=== PATIENT | female | born 1955 | race Caucasian/White ===

== ENCOUNTER 2018-12-20 10:33 | Inpatient (IN) | payer MEDICARE, OTHER ==
[~2018-12-20] VITALS: Ht 170.2 cm; Wt 121.6 kg
[2018-12-20 11:35] LABS: BASOPHILS % 0.3 % (0.0-2.0); EOSINOPHILS % 0.4 % (0.0-5.0); HEMATOCRIT. 52.6 % (36.0-48.0); HEMOGLOBIN. 17.2 g/dL (12.0-16.0); LYMPHOCYTES % 11.4 % (20.0-50.0); MEAN CORPUSCULAR HEMOGLOBIN 29.4 pg (28.0-32.0); MEAN CORPUSCULAR VOLUME 89.8 fL (81.0-99.0); MEAN PLATELET VOLUME 7.6 fl (7.4-10.4); MONOCYTES % 5.4 % (2.0-8.0); NEUTROPHILS % 82.5 % (40.0-76.0); PLATELET 301 x1000/uL (130-400); RED BLOOD CELL COUNT 5.86 mill/uL (4.2-5.4); RED CELL DISTRIBUTION WIDTH 13.6 % (11.6-14.6)
[2018-12-20 11:40] LABS: CHLORIDE 99 mEq/L (98-107)
[2018-12-20] MEDS ORDERED: INSULIN REGULAR (HUMULIN R) 300UNITS/3ML IV ONE (15:00)
[2018-12-20] MEDS: SODIUM CHLORIDE 0.9% 1,000 ML IV SCH ×2 (16:59→23:33)
[2018-12-20] MEDS ORDERED: DEXTROSE 50% WATER 50ML SYRINGE IV PRN (17:00)
[2018-12-20] MEDS ORDERED: LORAZEPAM 0.5MG TABLET PO PRN (17:00)
[2018-12-20] MEDS ORDERED: GUAIFENESIN 200MG/10ML SUGAR FREE UDC PO PRN (17:00)
[2018-12-20] MEDS ORDERED: LEVOFLOXACIN 500MG PREMIX 100 ML IV SCH (17:00)
[2018-12-20] MEDS ORDERED: ONDANSETRON HCL 4MG/2ML INJ IV PRN (17:00)
[2018-12-20] MEDS ORDERED: CLONIDINE 0.1MG TABLET PO PRN (17:00)
[2018-12-20] MEDS ORDERED: NITROGLYCERIN 0.4MG TABLET SL SL PRN (17:00)
[2018-12-20] MEDS ORDERED: ACETAMINOPHEN 325MG TABLET PO PRN (17:00)
[2018-12-20] MEDS ORDERED: MAGNESIUM/ALUMINUM HYDROXIDE/SIMETHICONE 30ML UDC PO PRN (17:00)
[2018-12-20] MEDS ORDERED: DOCUSATE SODIUM 100MG CAPSULE PO PRN (17:00)
[2018-12-20] MEDS ORDERED: IPRATROPIUM/ALBUTEROL 0.5-3(2.5)MG/3ML NEB INH PRN (17:00)
[2018-12-20] MEDS ORDERED: TRAMADOL 50MG TABLET PO PRN (17:11)
[2018-12-20 18:10] LABS: T4 FREE 1.44 ng/dL (0.76-1.46)
[2018-12-20] MEDS: BLOOD SUGAR DIAGNOSTIC STRIP TEST SCH ×2 (19:30→23:33)
[2018-12-20] MEDS ORDERED: ZOLPIDEM TARTRATE 5MG TABLET PO PRN (20:00)
[2018-12-20] MEDS ORDERED: NA PHOS,M-B/NA PHOS,DI-BA ENEMA 118ML PR PRN (21:00)
[2018-12-20] MEDS: INSULIN LISPRO 100 UNITS/ML SUBCUT SCH ×2 (21:00→23:54)
[2018-12-20] MEDS ORDERED: INSULIN GLARGINE UD 100 UNITS/ML SYR SUBCUT SCH (22:00)
[2018-12-20] MEDS ORDERED: IOHEXOL-350 100 ML BOTTLE ONE (22:03)
[2018-12-20 22:18] VITALS: BP 116/65
[2018-12-20] MEDS ORDERED: ASPI-1393 PO (22:52)
[2018-12-20] MEDS ORDERED: FLUO40CA8 PO (22:54)
[2018-12-20] MEDS ORDERED: GLIM4TAB2 PO (22:55)
[2018-12-20] MEDS ORDERED: PRAV20TA57 PO (22:56)
[2018-12-20] MEDS ORDERED: METF-415 PO (22:57)
[2018-12-20] MEDS ORDERED: CEFTRIAXONE 1 G PREMIX 50 ML IV SCH (23:00)
[2018-12-20] MEDS: LEVOFLOXACIN 500MG PREMIX 100 ML IV SCH (23:34)
[2018-12-20] MEDS: ASCORBIC ACID 500 MG TABLET PO SCH (23:34)
[2018-12-20] MEDS: FAMOTIDINE 20MG TABLET PO SCH (23:34)
[2018-12-20] MEDS: INSULIN GLARGINE UD 100 UNITS/ML SYR SUBCUT SCH (23:35)
[2018-12-21 04:00] VITALS: BP 118/65
[2018-12-21] MEDS: BLOOD SUGAR DIAGNOSTIC STRIP TEST SCH ×4 (06:37→21:00)
[2018-12-21] MEDS ORDERED: DILTIAZEM HCL 30MG TABLET PO SCH (07:30)
[2018-12-21 08:00] VITALS: BP 118/73
[2018-12-21] MEDS: ZINC SULFATE 220 MG ( 50 ) CAPSULE PO SCH (08:16)
[2018-12-21] MEDS: ASCORBIC ACID 500 MG TABLET PO SCH ×2 (08:16→21:18)
[2018-12-21] MEDS: FAMOTIDINE 20MG TABLET PO SCH ×2 (08:16→21:18)
[2018-12-21] MEDS: INSULIN LISPRO 100 UNITS/ML SUBCUT SCH ×4 (08:21→21:19)
[2018-12-21] MEDS ORDERED: ENOXAPARIN 30MG/0.3ML SYR SUBCUT SCH (09:00)
[2018-12-21] MEDS ORDERED: ASPIRIN 325MG EC TABLET PO SCH (09:00)
[2018-12-21 12:00] VITALS: BP 116/71
[2018-12-21] MEDS ORDERED: DILTIAZEM HCL 5MG/ML 5ML VIAL IV PRN (12:00)
[2018-12-21] MEDS ORDERED: DILTIAZEM HCL 5MG/ML 5ML VIAL IV NR ×2 (12:00→14:15)
[2018-12-21] MEDS: SODIUM CHLORIDE 0.9% 1,000 ML IV SCH (13:12)
[2018-12-21] MEDS: DILTIAZEM HCL 90MG TABLET PO SCH ×2 (13:12→18:00)
[2018-12-21 13:32] LABS: T4 FREE 1.32 ng/dL (0.76-1.46)
[2018-12-21 14:05] VITALS: BP 91/46
[2018-12-21] MEDS: DIGOXIN 500MCG/2ML AMP IV NR ×2 (14:15→14:29)
[2018-12-21 16:00] VITALS: BP 94/51
[2018-12-21] MEDS ORDERED: DIGOXIN 500MCG/2ML AMP IV NR (18:15)
[2018-12-21] MEDS: CEFTRIAXONE 1 G PREMIX 50 ML IV SCH (18:19)
[2018-12-21 20:41] VITALS: BP 99/69
[2018-12-21] MEDS: ENOXAPARIN 100MG/ML SYR SUBCUT SCH (21:18)
[2018-12-21] MEDS: INSULIN GLARGINE UD 100 UNITS/ML SYR SUBCUT SCH (21:20)
[2018-12-21 22:36] LABS: CLARITY URINE CLOUDY (CLEAR); COLOR URINE YELLOW (YELLOW); KETONES URINE NEGATIVE (NEGATIVE); LEUKOCYTE ESTERASE URINE 2+ (NEGATIVE); NITRITE URINE NEGATIVE (NEGATIVE); OCCULT BLOOD URINE NEGATIVE (NEGATIVE); PROTEIN URINE NEGATIVE (NEGATIVE); SPECIFIC GRAVITY URINE 1.026 (1.005-1.030); UROBILINOGEN URINE 0.2 E.U./dL (0.2-1.0)
[2018-12-21 22:49] LABS: *BENZODIAZEPINES SCREEN URINE NEGATIVE (NEGATIVE); *COCAINE SCREEN URINE NEGATIVE (NEGATIVE); METHADONE URINE SCREEN NEGATIVE (NEGATIVE); OPIATES URINE SCREEN NEGATIVE (NEGATIVE)
[2018-12-21 22:51] LABS: *AMPHETAMINES SCREEN URINE NEGATIVE (NEGATIVE); PHENCYCLIDINE URINE SCREEN NEGATIVE (NEGATIVE)
[2018-12-21 22:52] LABS: *BARBITURATES SCREEN URINE NEGATIVE (NEGATIVE); CANNABINOID URINE SCREEN NEGATIVE (NEGATIVE)
[2018-12-22] MEDS: SODIUM CHLORIDE 0.9% 1,000 ML IV SCH ×3 (00:10→18:59)
[2018-12-22] MEDS: LEVOFLOXACIN 500MG PREMIX 100 ML IV SCH (00:11)
[2018-12-22 00:34] VITALS: BP 95/54
[2018-12-22 04:00] VITALS: BP 102/57
[2018-12-22] MEDS: DILTIAZEM HCL 90MG TABLET PO SCH ×4 (05:42→18:00)
[2018-12-22] MEDS: BLOOD SUGAR DIAGNOSTIC STRIP TEST SCH ×4 (06:12→21:34)
[2018-12-22 06:44] LABS: D-DIMER 2.12 mg/L FEU (<0.50); INR 1.2
[2018-12-22 06:55] LABS: BASOPHILS % 0.4 % (0.0-2.0); EOSINOPHILS % 2.2 % (0.0-5.0); HEMATOCRIT. 38.5 % (36.0-48.0); HEMOGLOBIN. 12.9 g/dL (12.0-16.0); LYMPHOCYTES % 17.6 % (20.0-50.0); MEAN CORPUSCULAR HEMOGLOBIN 29.7 pg (28.0-32.0); MEAN CORPUSCULAR VOLUME 88.4 fL (81.0-99.0); MEAN PLATELET VOLUME 7.3 fl (7.4-10.4); MONOCYTES % 7.1 % (2.0-8.0); NEUTROPHILS % 72.7 % (40.0-76.0); PLATELET 192 x1000/uL (130-400); RED BLOOD CELL COUNT 4.35 mill/uL (4.2-5.4); RED CELL DISTRIBUTION WIDTH 13.5 % (11.6-14.6)
[2018-12-22 07:17] LABS: CHLORIDE 108 mEq/L (98-107)
[2018-12-22 07:24] LABS: HDL CHOLESTEROL 47 mg/dL (40-59); LDL CHOLESTEROL 95 mg/dL (5-100)
[2018-12-22] MEDS: FAMOTIDINE 20MG TABLET PO SCH ×2 (10:13→21:34)
[2018-12-22] MEDS: ENOXAPARIN 100MG/ML SYR SUBCUT SCH ×2 (10:13→21:34)
[2018-12-22] MEDS: ZINC SULFATE 220 MG ( 50 ) CAPSULE PO SCH (10:13)
[2018-12-22] MEDS: ASCORBIC ACID 500 MG TABLET PO SCH ×2 (10:13→21:34)
[2018-12-22] MEDS: INSULIN LISPRO 100 UNITS/ML SUBCUT SCH ×4 (10:17→21:40)
[2018-12-22 11:48] VITALS: BP 135/68
[2018-12-22] MEDS ORDERED: MAGNESIUM 2 G PREMIX 50 ML IV NR (14:00)
[2018-12-22 15:51] VITALS: BP 119/60
[2018-12-22] MEDS: CEFTRIAXONE 1 G PREMIX 50 ML IV SCH (18:08)
[2018-12-22] MEDS: AMIODARONE HCL 200 MG TABLET PO SCH (18:08)
[2018-12-22 20:00] VITALS: BP 120/73
[2018-12-22] MEDS: INSULIN GLARGINE UD 100 UNITS/ML SYR SUBCUT SCH (21:38)
[2018-12-23 00:21] VITALS: BP 120/59
[2018-12-23] MEDS: DILTIAZEM HCL 90MG TABLET PO SCH ×3 (00:41→12:10)
[2018-12-23] MEDS: LEVOFLOXACIN 500MG PREMIX 100 ML IV SCH (00:42)
[2018-12-23 04:00] VITALS: BP 106/67
[2018-12-23] MEDS: AMIODARONE HCL 200 MG TABLET PO SCH ×2 (06:07→16:47)
[2018-12-23] MEDS: BLOOD SUGAR DIAGNOSTIC STRIP TEST SCH ×4 (06:17→21:00)
[2018-12-23] MEDS: SODIUM CHLORIDE 0.9% 1,000 ML IV SCH ×2 (06:17→14:24)
[2018-12-23 07:29] LABS: BASOPHILS % 0.4 % (0.0-2.0); EOSINOPHILS % 3.4 % (0.0-5.0); HEMATOCRIT. 37.2 % (36.0-48.0); HEMOGLOBIN. 12.4 g/dL (12.0-16.0); LYMPHOCYTES % 20.6 % (20.0-50.0); MEAN CORPUSCULAR HEMOGLOBIN 29.6 pg (28.0-32.0); MEAN CORPUSCULAR VOLUME 88.3 fL (81.0-99.0); MEAN PLATELET VOLUME 7.3 fl (7.4-10.4); MONOCYTES % 8.5 % (2.0-8.0); NEUTROPHILS % 67.1 % (40.0-76.0); PLATELET 179 x1000/uL (130-400); RED BLOOD CELL COUNT 4.21 mill/uL (4.2-5.4); RED CELL DISTRIBUTION WIDTH 13.6 % (11.6-14.6)
[2018-12-23 08:00] VITALS: BP 121/64
[2018-12-23] MEDS: INSULIN LISPRO 100 UNITS/ML SUBCUT SCH ×4 (08:00→17:00)
[2018-12-23] MEDS: ASCORBIC ACID 500 MG TABLET PO SCH ×2 (09:44→21:14)
[2018-12-23] MEDS: FAMOTIDINE 20MG TABLET PO SCH ×2 (09:44→21:14)
[2018-12-23] MEDS: ZINC SULFATE 220 MG ( 50 ) CAPSULE PO SCH (09:45)
[2018-12-23] MEDS: ENOXAPARIN 100MG/ML SYR SUBCUT SCH ×2 (09:52→21:16)
[2018-12-23 10:23] LABS: CHLORIDE 108 mEq/L (98-107)
[2018-12-23 12:00] VITALS: BP 134/68
[2018-12-23] MEDS ORDERED: POTASSIUM CHLORIDE 20MEQ TABLET SR PO NR (12:30)
[2018-12-23] MEDS ORDERED: MAGNESIUM 2 G PREMIX 50 ML IV NR (14:00)
[2018-12-23 16:00] VITALS: BP 110/70
[2018-12-23] MEDS: DILTIAZEM HCL 60MG TABLET PO SCH (16:47)
[2018-12-23] MEDS: CEFTRIAXONE 1 G PREMIX 50 ML IV SCH (16:48)
[2018-12-23 20:00] VITALS: BP 126/53
[2018-12-23] MEDS: INSULIN GLARGINE UD 100 UNITS/ML SYR SUBCUT SCH (21:41)
[2018-12-24] VITALS: BP 133/63
[2018-12-24] MEDS: DILTIAZEM HCL 60MG TABLET PO SCH ×3 (00:02→13:12)
[2018-12-24] MEDS: LEVOFLOXACIN 500MG PREMIX 100 ML IV SCH (01:30)
[2018-12-24 04:00] VITALS: BP 128/69
[2018-12-24] MEDS: AMIODARONE HCL 200 MG TABLET PO SCH (05:36)
[2018-12-24] MEDS: BLOOD SUGAR DIAGNOSTIC STRIP TEST SCH ×2 (06:17→13:06)
[2018-12-24] MEDS: INSULIN LISPRO 100 UNITS/ML SUBCUT SCH ×2 (06:21→13:12)
[2018-12-24 06:55] LABS: BASOPHILS % 0.4 % (0.0-2.0); EOSINOPHILS % 3.8 % (0.0-5.0); HEMATOCRIT. 40.7 % (36.0-48.0); HEMOGLOBIN. 13.5 g/dL (12.0-16.0); LYMPHOCYTES % 27.6 % (20.0-50.0); MEAN CORPUSCULAR HEMOGLOBIN 29.4 pg (28.0-32.0); MEAN CORPUSCULAR VOLUME 88.7 fL (81.0-99.0); MONOCYTES % 7.2 % (2.0-8.0); PLATELET 187 x1000/uL (130-400); RED BLOOD CELL COUNT 4.59 mill/uL (4.2-5.4); RED CELL DISTRIBUTION WIDTH 13.6 % (11.6-14.6)
[2018-12-24 07:00] LABS: CHLORIDE 109 mEq/L (98-107)
[2018-12-24 08:28] VITALS: BP 121/55
[2018-12-24] MEDS: FAMOTIDINE 20MG TABLET PO SCH (09:24)
[2018-12-24] MEDS: ASCORBIC ACID 500 MG TABLET PO SCH (09:24)
[2018-12-24] MEDS: ZINC SULFATE 220 MG ( 50 ) CAPSULE PO SCH (09:24)
[2018-12-24] MEDS: ENOXAPARIN 100MG/ML SYR SUBCUT SCH (09:25)
[2018-12-24 11:08] VITALS: BP 121/55
[2018-12-24 12:00] VITALS: BP 126/57
== END 2018-12-24 15:21 | disposition home health service (06) | DRG 872 ==
LOC: ER 10:33 → 6WST 15:52 → EDBEDREQ 15:57 → SUPCPDRO 16:58 → ENRESERV 20:57 → 8WST 12-23 08:59
PROVIDERS: ADMIT Internal Medicine; ATTEND Internal Medicine
DX: A41.9 Sepsis, unspecified organism (principal); I48.4 Atypical atrial flutter; E87.1 Hypo-osmolality and hyponatremia; Z68.41 Body mass index [BMI] 40.0-44.9, adult; E11.65 Type 2 diabetes mellitus with hyperglycemia; E66.01 Morbid (severe) obesity due to excess calories; E83.42 Hypomagnesemia; I10 Essential (primary) hypertension; I48.91 Unspecified atrial fibrillation; Z96.653 Presence of artificial knee joint, bilateral; M19.90 Unspecified osteoarthritis, unspecified site; Z79.01 Long term (current) use of anticoagulants; Z79.4 Long term (current) use of insulin; Z79.899 Other long term (current) drug therapy; Z86.61 Personal history of infections of the central nervous system
CPT/HCPCS: 36415; 71045; 71275; 80061; 80305; 82962; 83036; 83735; 83880; 84439; 84443; 84481; 84484; 85379; 93005; 93306; 93970; 96374; 97161; 97166; 99285; J0696; J1160; J1650; J1815; J1956; J3475; J3490; Q9967

== ENCOUNTER 2020-01-16 04:40 | Inpatient (IN) | payer MEDICARE, OTHER ==
[2020-01-16] VITALS (7 sets, daily range): BP systolic 133–177; BP diastolic 84–107
[~2020-01-16] VITALS: Ht 170.2 cm; Wt 118.6 kg
[~2020-01-16 04:40] MED LIST: ASPI-1497 PO; FLUO40CA8 PO; GLIM4TAB36 PO; METF-415 PO; PRAV20TA57 PO
[2020-01-16] MEDS ORDERED: SODIUM CHLORIDE 0.9% 1,000 ML IV ONE (04:57)
[2020-01-16] MEDS ORDERED: DILTIAZEM HCL 5MG/ML 5ML VIAL IV ONE (05:00)
[2020-01-16] MEDS ORDERED: ASPIRIN 81MG TABLET PO ONE (05:00)
[2020-01-16 05:19] LABS: HEMATOCRIT. 33.8 % (36.0-48.0); HEMOGLOBIN. 11.4 g/dL (12.0-16.0); MEAN CORPUSCULAR HEMOGLOBIN 29.4 pg (28.0-32.0); MEAN CORPUSCULAR VOLUME 87.3 fL (81.0-99.0); MEAN PLATELET VOLUME 6.4 fl (7.4-10.4); PLATELET 301 x1000/uL (130-400); RED BLOOD CELL COUNT 3.87 mill/uL (4.2-5.4); RED CELL DISTRIBUTION WIDTH 13.1 % (11.6-14.6)
[2020-01-16 05:25] LABS: CHLORIDE 105 mEq/L (98-107)
[2020-01-16 05:28] LABS: ETHANOL BLOOD < 10 mg/dL
[2020-01-16] MEDS ORDERED: ALBUTEROL (0.083%) 2.5MG/3ML NEB HHN NR (05:45)
[2020-01-16] MEDS ORDERED: DEXTROSE 50% WATER 50ML SYRINGE IV ONE (05:45)
[2020-01-16] MEDS ORDERED: INSULIN REGULAR (HUMULIN R) 300UNITS/3ML IV NR (05:45)
[2020-01-16] MEDS ORDERED: CALCIUM CHLORIDE 1GM/10ML SYR IV NR (05:45)
[2020-01-16] MEDS ORDERED: SODIUM BICARBONATE 8.4% 1 MEQ/ML 50ML SYR IV NR (05:45)
[2020-01-16 05:47] LABS: INR 1.3; PARTIAL THROMBOPLASTIN TIME 29.7 sec (23.4-31.0); PROTHROMBIN TIME 13.5 sec (9.6-11.0)
[2020-01-16] MEDS ORDERED: DEXTROSE 50% WATER 50ML SYRINGE IV NR (06:00)
[2020-01-16] MEDS ORDERED: IPRATROPIUM/ALBUTEROL 0.5-3(2.5)MG/3ML NEB ORI PRN (06:45)
[2020-01-16] MEDS ORDERED: GUAIFENESIN 200MG/10ML SUGAR FREE UDC PO PRN (06:45)
[2020-01-16] MEDS ORDERED: DEXTROSE 50% WATER 50ML SYRINGE IV PRN (06:45)
[2020-01-16] MEDS ORDERED: DOCUSATE SODIUM 100MG CAPSULE PO PRN (06:45)
[2020-01-16] MEDS ORDERED: ZOLPIDEM TARTRATE 5MG TABLET PO PRN (06:45)
[2020-01-16] MEDS ORDERED: NITROGLYCERIN 0.4MG TABLET SL SL PRN (06:45)
[2020-01-16] MEDS ORDERED: CLONIDINE 0.1MG TABLET PO PRN (06:45)
[2020-01-16] MEDS ORDERED: ONDANSETRON HCL 4MG/2ML INJ IV PRN (06:45)
[2020-01-16] MEDS ORDERED: ACETAMINOPHEN 325MG TABLET PO PRN ×2 (06:45)
[2020-01-16] MEDS ORDERED: MAGNESIUM/ALUMINUM HYDROXIDE/SIMETHICONE 30ML UDC PO PRN (06:45)
[2020-01-16] MEDS ORDERED: DIPHENHYDRAMINE 50MG/ML VIAL IV PRN (06:45)
[2020-01-16] MEDS ORDERED: TRAMADOL 50MG TABLET PO PRN (06:45)
[2020-01-16 07:01] LABS: PLATELET ESTIMATE NORMAL
[2020-01-16 08:18] LABS: T4 FREE 1.31 ng/dL (0.76-1.46)
[2020-01-16 08:33] LABS: FOLIC ACID (FOLATE) SERUM 12.2 ng/mL (>5.38)
[2020-01-16] MEDS ORDERED: SODIUM POLYSTYRENE SULFONATE 15 G/60 ML BOT PO SCH (09:00)
[2020-01-16] MEDS ORDERED: FAMOTIDINE 20MG TABLET PO SCH (09:00)
[2020-01-16] MEDS: BLOOD SUGAR DIAGNOSTIC STRIP TEST SCH ×4 (09:58→21:09)
[2020-01-16] MEDS: SEVELAMER CARBONATE 800 MG TABLET PO SCH ×3 (10:10→17:50)
[2020-01-16] MEDS: ZINC SULFATE 220 MG ( 50 ) CAPSULE PO SCH (10:10)
[2020-01-16] MEDS: FAMOTIDINE 20MG TABLET PO SCH (10:10)
[2020-01-16] MEDS: INSULIN LISPRO 100 UNITS/ML SUBCUT SCH ×4 (10:10→21:12)
[2020-01-16] MEDS: ASCORBIC ACID 500 MG TABLET PO SCH ×2 (10:24→21:09)
[2020-01-16 11:19] LABS: BG BASE EXCESS -6.3 mmol/L (-2.0-2.0); BG CARBOXYHEMOGLOBIN 0.3 % (0.5-1.5); BG DEOXYHEMOGLOBIN 2.8 % (0.0-5.0); BG FRACTION INSPIRED OXYGEN 36; BG HCO3 ACT 18.2 mmol/L (22.0-26.0); BG OXYGEN SATURATION 97.2 % (92.0-98.5); BG OXYHEMOGLOBIN 96.9 % (94.0-97.0); BG PCO2 32.6 mmHg (35.0-45.0); BG PH 7.364 (7.350-7.450); BG PO2 102.7 mmHg (75.0-100.0); BG SAMPLE SITE RIGHT RADIAL; BG TOTAL HEMOGLOBIN 11.5 g/dL (12.0-18.0); BG VENT MODE NASAL CANNULA
[2020-01-16] MEDS: CITRIC ACID/SODIUM CITRATE SOLN 30ML UDC PO SCH ×3 (11:37→17:50)
[2020-01-16] MEDS ORDERED: DILTIAZEM HCL 60MG TABLET PO SCH (12:00)
[2020-01-16] MEDS: SODIUM CHLORIDE 0.9% 1,000 ML IV SCH (12:40)
[2020-01-16] MEDS ORDERED: SODIUM POLYSTYRENE SULFONATE 15 G/60 ML BOT PO NR (13:00)
[2020-01-16] MEDS ORDERED: PNEUMOCOCCAL 23-VAL P-SAC VAC 0.5 ML IM ONE (14:00)
[2020-01-16] MEDS: METOPROLOL TARTRATE 25MG TABLET PO SCH ×2 (17:00→21:09)
[2020-01-16] MEDS: DILTIAZEM HCL 90MG TABLET PO SCH (17:50)
[2020-01-16 18:23] LABS: CHLORIDE 109 mEq/L (98-107)
[2020-01-16 18:32] LABS: CREATINE KINASE 67 IU/L (26-192)
[2020-01-16 18:34] LABS: CREATINE KINASE MB FRACTION 4.3 ng/mL (0.5-3.6)
[2020-01-17] VITALS (12 sets, daily range): BP systolic 130–163; BP diastolic 55–96
[2020-01-17] MEDS: DILTIAZEM HCL 90MG TABLET PO SCH ×2 (00:06→06:21)
[2020-01-17] MEDS: SODIUM CHLORIDE 0.9% 1,000 ML IV SCH ×2 (00:07→12:59)
[2020-01-17 00:33] LABS: CREATINE KINASE 66 IU/L (26-192)
[2020-01-17 00:34] LABS: CREATINE KINASE MB FRACTION 3.3 ng/mL (0.5-3.6)
[2020-01-17] MEDS: BLOOD SUGAR DIAGNOSTIC STRIP TEST SCH ×4 (06:42→21:12)
[2020-01-17 06:53] LABS: HEMATOCRIT. 31.7 % (36.0-48.0); HEMOGLOBIN. 10.6 g/dL (12.0-16.0); MEAN CORPUSCULAR HEMOGLOBIN 29.6 pg (28.0-32.0); MEAN CORPUSCULAR VOLUME 88.5 fL (81.0-99.0); MEAN PLATELET VOLUME 6.6 fl (7.4-10.4); PLATELET 256 x1000/uL (130-400); RED BLOOD CELL COUNT 3.59 mill/uL (4.2-5.4); RED CELL DISTRIBUTION WIDTH 13.3 % (11.6-14.6)
[2020-01-17 06:54] LABS: CHLORIDE 109 mEq/L (98-107)
[2020-01-17] MEDS: CITRIC ACID/SODIUM CITRATE SOLN 30ML UDC PO SCH ×3 (08:27→17:00)
[2020-01-17] MEDS: ZINC SULFATE 220 MG ( 50 ) CAPSULE PO SCH (08:27)
[2020-01-17] MEDS: FAMOTIDINE 20MG TABLET PO SCH (08:27)
[2020-01-17] MEDS: SEVELAMER CARBONATE 800 MG TABLET PO SCH ×3 (08:27→18:12)
[2020-01-17] MEDS: ASCORBIC ACID 500 MG TABLET PO SCH ×2 (08:27→21:14)
[2020-01-17] MEDS: INSULIN LISPRO 100 UNITS/ML SUBCUT SCH ×4 (08:28→21:11)
[2020-01-17] MEDS: METOPROLOL TARTRATE 25MG TABLET PO SCH ×2 (08:32→21:15)
[2020-01-17] MEDS ORDERED: SODIUM POLYSTYRENE SULFONATE 15 G/60 ML BOT PO NR ×2 (10:00→12:00)
[2020-01-17] MEDS: DILTIAZEM HCL 60MG TABLET PO SCH ×2 (12:37→18:12)
[2020-01-17] MEDS: ENOXAPARIN 120MG/0.8ML SYR SUBCUT SCH (12:58)
[2020-01-17 13:47] LABS: PLATELET ESTIMATE NORMAL
[2020-01-17] MEDS: NYSTATIN POWDER 15GM TOP SCH (22:15)
[2020-01-18] VITALS (10 sets, daily range): BP systolic 139–149; BP diastolic 66–99
[2020-01-18] MEDS: DILTIAZEM HCL 60MG TABLET PO SCH ×3 (00:01→11:35)
[2020-01-18] MEDS: SODIUM CHLORIDE 0.9% 1,000 ML IV SCH ×2 (02:15→16:20)
[2020-01-18] MEDS: BLOOD SUGAR DIAGNOSTIC STRIP TEST SCH ×3 (06:21→17:28)
[2020-01-18 06:46] LABS: CLARITY URINE CLOUDY (CLEAR); COLOR URINE YELLOW (YELLOW); KETONES URINE NEGATIVE (NEGATIVE); LEUKOCYTE ESTERASE URINE 2+ (NEGATIVE); NITRITE URINE NEGATIVE (NEGATIVE); OCCULT BLOOD URINE 3+ (NEGATIVE); PROTEIN URINE TRACE (NEGATIVE); SPECIFIC GRAVITY URINE 1.011 (1.005-1.030); UROBILINOGEN URINE 0.2 E.U./dL (0.2-1.0)
[2020-01-18 07:01] LABS: BASOPHILS % 0.5 % (0.0-2.0); EOSINOPHILS % 4.8 % (0.0-5.0); HEMATOCRIT. 30.9 % (36.0-48.0); HEMOGLOBIN. 10.3 g/dL (12.0-16.0); LYMPHOCYTES % 9.7 % (20.0-50.0); MEAN CORPUSCULAR HEMOGLOBIN 29.4 pg (28.0-32.0); MEAN CORPUSCULAR VOLUME 88.6 fL (81.0-99.0); MEAN PLATELET VOLUME 6.6 fl (7.4-10.4); MONOCYTES % 6.1 % (2.0-8.0); NEUTROPHILS % 78.9 % (40.0-76.0); PLATELET 229 x1000/uL (130-400); RED BLOOD CELL COUNT 3.49 mill/uL (4.2-5.4); RED CELL DISTRIBUTION WIDTH 13.5 % (11.6-14.6)
[2020-01-18 07:08] LABS: SODIUM URINE RANDOM 67 mEq/L
[2020-01-18 07:14] LABS: PHOSPHORUS 5.7 mg/dL (2.5-4.9)
[2020-01-18 07:14] LABS: *AMPHETAMINES SCREEN URINE NEGATIVE (NEGATIVE); *BARBITURATES SCREEN URINE NEGATIVE (NEGATIVE)
[2020-01-18 07:15] LABS: *BENZODIAZEPINES SCREEN URINE NEGATIVE (NEGATIVE); *COCAINE SCREEN URINE NEGATIVE (NEGATIVE); METHADONE URINE SCREEN NEGATIVE (NEGATIVE); OPIATES URINE SCREEN NEGATIVE (NEGATIVE); PHENCYCLIDINE URINE SCREEN NEGATIVE (NEGATIVE)
[2020-01-18 07:16] LABS: CANNABINOID URINE SCREEN NEGATIVE (NEGATIVE)
[2020-01-18] MEDS: FAMOTIDINE 20MG TABLET PO SCH (08:23)
[2020-01-18] MEDS: ZINC SULFATE 220 MG ( 50 ) CAPSULE PO SCH (08:23)
[2020-01-18] MEDS: ASCORBIC ACID 500 MG TABLET PO SCH (08:23)
[2020-01-18] MEDS: INSULIN LISPRO 100 UNITS/ML SUBCUT SCH ×3 (08:23→17:20)
[2020-01-18] MEDS: CITRIC ACID/SODIUM CITRATE SOLN 30ML UDC PO SCH ×3 (08:26→17:00)
[2020-01-18] MEDS: METOPROLOL TARTRATE 25MG TABLET PO SCH (08:26)
[2020-01-18] MEDS: SEVELAMER CARBONATE 800 MG TABLET PO SCH ×3 (08:27→17:20)
[2020-01-18] MEDS: NYSTATIN POWDER 15GM TOP SCH (08:27)
[2020-01-18] MEDS: ENOXAPARIN 120MG/0.8ML SYR SUBCUT SCH (08:27)
== END 2020-01-18 20:17 | disposition short-term general hospital (02) | DRG 682 ==
LOC: ER 04:40 → SUPCPDRO 06:36 → ENRESERV 08:53 → 3WST 10:17
PROVIDERS: ADMIT Internal Medicine; ATTEND Internal Medicine
DX: N17.0 Acute kidney failure with tubular necrosis (principal); E43 Unspecified severe protein-calorie malnutrition; J96.01 Acute respiratory failure with hypoxia; I50.31 Acute diastolic (congestive) heart failure; E87.2 Acidosis; E87.1 Hypo-osmolality and hyponatremia; Z68.41 Body mass index [BMI] 40.0-44.9, adult; I42.9 Cardiomyopathy, unspecified; I48.91 Unspecified atrial fibrillation; I11.0 Hypertensive heart disease with heart failure; E66.01 Morbid (severe) obesity due to excess calories; D72.829 Elevated white blood cell count, unspecified; Z96.653 Presence of artificial knee joint, bilateral; R00.1 Bradycardia, unspecified; Z20.828 Contact with and (suspected) exposure to other viral communicable diseases; E11.9 Type 2 diabetes mellitus without complications; E87.5 Hyperkalemia; N14.1 Nephropathy induced by other drugs, medicaments and biological substances; T36.8X5A Adverse effect of other systemic antibiotics, initial encounter; Y92.89 Other specified places as the place of occurrence of the external cause; Z88.8 Allergy status to other drugs, medicaments and biological substances; Z79.82 Long term (current) use of aspirin; Z87.891 Personal history of nicotine dependence; Z79.84 Long term (current) use of oral hypoglycemic drugs; Z79.899 Other long term (current) drug therapy; Z83.3 Family history of diabetes mellitus; Z82.49 Family history of ischemic heart disease and other diseases of the circulatory system; D63.8 Anemia in other chronic diseases classified elsewhere
CPT/HCPCS: 36415; 36600; 71045; 76770; 80048; 80053; 80061; 80305; 80320; 81003; 82375; 82533; 82550; 82553; 82607; 82746; 82805; 82962; 83036; 83540; 83550; 83735; 83880; 83935; 84100; 84300; 84439; 84443; 84484; 85025; 93005; 93306; 93970; 99291; J1650; J1815; J3490; J7030; G0480; U0003-CS